=== PATIENT | male | born 1970 | race Caucasian/White ===

== ENCOUNTER 2019-04-28 17:43 | Emergency (ER) | payer OTHER, SELFPAY ==
[2019-04-28 18:10] VITALS: BP 170/108; PULSE 74; RESP 18; TEMP 36.7; O2SAT 98; BMI 27.7
--- NOTE | 2019-04-28 18:58 | ED_ITS ---
HPI - Wound/Laceration <DEDE Zheng - Last Filed: 04/28/19 20:46> General Chief Complaint: Wound/Laceration Stated Complaint: laceration to right hand Time Seen by Provider: 04/28/19 18:58 Source: patient Mode of arrival: Ambulatory Limitations: no limitations History of Present Illness HPI narrative: This is a 48-year-old male, nonsmoker, who presents to ED with right palm laceration from a glass piece he sustained while at work. Patient reports it had pulsating bleeding initially which stopped at this time. Patient dominant left hand and reports last tetanus immunization within 4-5 years. 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 Patient reports is able to move right hand without difficulty and intact sensation. Related Data Previous Rx's Medication Instructions Recorded lisinopril 20 mg PO DAILY #30 tab 04/28/19 Allergies Allergy/AdvReac Type Severity Reaction Status Date / Time hydrocodone [HYDROCODONE] Allergy Mild NAUSEA Verified 04/28/19 18:10 Review of Systems <DEDE Zheng - Last Filed: 04/28/19 20:46> Review of Systems Narrative: General: Denies fever, chills, fatigue, malaise, sweats. HEENT: Denies sinus pain, ear pain, sore throat, difficulty swallowing, dizziness. Respiratory: Denies dyspnea, cough, wheezing, hemoptysis, sputum. Cardiovascular: Denies chest pain, palpitations, orthopnea, edema. Gastrointestinal: Denies nausea, vomiting, abdominal pain, diarrhea, constipation, melena. : Denies dysuria, frequency, incontinence, hematuria, urinary retention. Musculoskeletal: Denies weakness, joint pain or bony pain. Skin: See HPI Neurologic: Denies weakness, headache, numbness, change in speech, confusion, seizures, incoordination. Psychiatric: No concerning psychosocial issues. 12-point review of systems is negative except for those stated above. Patient History <DEDE Zheng - Last Filed: 04/28/19 20:46> Surgical History (Updated 04/28/19 @ 20:10 by DEDE Zheng) History of hernia repair (Acute) Social History Smoking Status: Never smoker Smoking Status: Never smoker alcohol intake frequency: 0-2 drinks per day Substance Use Type: does not use Exam <DEDE Zheng - Last Filed: 04/28/19 20:46> Narrative Exam Narrative: General appearance: well developed, well nourished, in no acute distress. Head: normocephalic, atraumatic, no scalp lesions, non-tender. ENT: Bilateral auditory canals and tympanic membranes clear. Hearing grossly intact. Nose without bleeding, purulent discharge, septal hematoma or deviation. Turbinate without erythema or swelling. Facial sinuses nontender to palpate. Mucous membrane moist, no mucosal lesion. Throat without erythema, tonsillar hypertrophy or exudate. Uvula in midline, airway patent. Neck/Thyroid: neck supple, full range of motion, no visible masses or meningeal signs. No JVD, non-tender without lymphadenopathy. Skin: About 1 cm laceration to right metacarpal region. no suspicious rashes, lesions over visible areas. Warm and dry and appropriate color for ethnicity. Heart: no clubbing, no cyanosis, no edema. Lungs: Breathing even and unlabored. No stridor. No accessory muscles used. Able to speak in full sentences. Chest: normal shape and expansion. Abdomen: non-obese, non-distended. Neurologic: alert and oriented. Cognitive exam, [employer] ASS[employer] COUNSE[employer]OR and PNS grossly intact on informal exam. Psych: good eye contact, normal affect. Initial Vital Signs Initial Vital Signs: Vital Signs Temperature 98.0 F 04/28/19 18:10 Pulse Rate 74 04/28/19 18:10 Respiratory Rate 18 04/28/19 18:10 Blood Pressure 170/108 H 04/28/19 18:10 Pulse Oximetry 98 04/28/19 18:10 <Carloz Stinson MD - Last Filed: 04/30/19 15:23> Initial Vital Signs Initial Vital Signs: Vital Signs Temperature 98.0 F 04/28/19 18:10 Pulse Rate 74 04/28/19 18:10 Respiratory Rate 18 04/28/19 18:10 Blood Pressure 170/108 H 04/28/19 18:10 Pulse Oximetry 98 04/28/19 18:10 Procedures <Donell EricaDEDE - Last Filed: 04/28/19 20:46> Laceration Repair Laceration 1: Site: hand (volar aspect of 1st metacarpal) Side (If applicable): right Size (cm): 1 Description: linear Pre-repair: wound explored, irrigated extensively and deep structures intact Skin layer closed with: dermabond Scores <DEDE Zheng - Last Filed: 04/28/19 20:46> GCS [place] coma scale eye opening: Spontaneous Miles coma scale verbal response: Orientated Miles coma scale motor response: Obey commands Miles coma scale total score: 15 Course <DEDE Zheng - Last Filed: 04/28/19 20:46> Vital Signs Vital signs: Vital Signs - 8 hr 04/28/19 18:10 Temperature 98.0 F Pulse Rate 74 Respiratory Rate 18 Blood Pressure 170/108 H Pulse Oximetry 98 <Carloz Stinson MD - Last Filed: 04/30/19 15:23> Vital Signs Vital signs: Vital Signs - 8 hr 04/28/19 18:10 Temperature 98.0 F Pulse Rate 74 Respiratory Rate 18 Blood Pressure 170/108 H Pulse Oximetry 98 MDM - Wound/Laceration <DEDE Zheng - Last Filed: 04/28/19 20:46> Differential Diagnosis Differential diagnosis: Likely laceration and other (HTN) Medical Records Attestation: I reviewed the patient's medical records. MDM Narrative Medical decision making narrative: Laceration on right palm was explored and irrigated well after soaking in a Hibiclens mixed water. Patient denies sensation of foreign body on affected site. Laceration has been repaired with Dermabond and reinforced with Steri-Strips. Patient tolerated well. Tetanus is currently up to date. Patient reports ran out of high blood pressure medication due to labs in medical insurance. Thirty day duration of lisinopril 20 mg has been prescribed and advised to follow up with his primary care physician for recheck on his blood pressure and patient verbalized understanding. Also informed lisinopril is 1 of the 4 dollar prescription at [facility]. Return precautions were discussed with the patient including signs and symptoms or infection and patient verbalized understanding and agrees with the treatment plan. L&I documentation has been completed and patient advised to stay on limited work lifting last than 20 lb and do not post significant pressure on affected hand to prevent opening dehiscing the wound. Discharge Plan Departure Patient Disposition: Home Clinical Impression: Laceration of right palm Qualifiers: Encounter type: initial encounter Qualified Code(s): S61.411A - Laceration without foreign body of right hand, initial encounter Hypertension Qualifiers: Hypertension type: unspecified Qualified Code(s): I10 - Essential (primary) hypertension Discharge Date/Time: 04/28/19 21:16 Instructions: DI for High Blood Pressure, DI for Laceration Repair With Dermabond Activity Restrictions/Additional Instructions: You have been diagnosed with [1 cm laceration to right palm in 1st metacarpal which has been repaired with Dermabond and Steri-Strips. History of essential hypertension and ran out of medication of lisinopril.]. What to do: *Take your medications as directed. Please take lisinopril 20 mg per day and follow up with her doctor for a recheck on her blood pressure. *Follow up with your primary care provider in 2-3 days, call for an appointment. Let them know you were seen in the ED and that we asked you to be seen in follow up. Lisinopril 20 mg has been prescribed for elevated blood pressure since urine out a prescription but you do need to follow-up with primary care physician for recheck. If you go to [facility], this medication is 4 dollar for a month supply. However, good Rx coupon has been provided for [facility] or [facility] pharmacy. *Return to ED if you have any new, worsening, or concerning symptoms, such as [increasing redness, pain, warmth, swelling, purulent discharge on affected hand. Chest pain, breathing difficulty, dizziness, or any acute concerns.]. Prescriptions: New lisinopril 20 mg tablet 20 mg PO DAILY Qty: 30 RF: 0 Referrals: Michael Hernandez MD [Non-Staff] -
--- NOTE | 2019-04-28 20:16 | CM.MNRNOTE ---
pt states he is suppose to take HTN medications but does not due to insurance.
== END 2019-04-28 21:16 | disposition home or self-care (01) ==
PROVIDERS: Emergency Provider Nurse Practitioner Family
DX: S61.411A Laceration without foreign body of right hand, initial encounter (principal); I10 Essential (primary) hypertension; W25.XXXA Contact with sharp glass, initial encounter; Y99.0 Civilian activity done for income or pay
CPT/HCPCS: 99281; 99283